=== PATIENT | female | born 1960 | race Caucasian/White ===

== ENCOUNTER → 2018-02-05 | Outpatient (CLI) | payer BC ==
[~2018-02-05] MED LIST: BENICAR HCT 201 EACH PO; CITALOPRAM HBR20 MG PO; CYCLOBENZAPRINE5 MG PO; SYMBICORT 80-10.2 GM INH; estrogen patch TOP
--- NOTE | 2018-02-05 11:06 | Diagnostic Imaging Report ---
PROCEDURE:US RETROPERITONEAL ( KIDNEY ). COMPARISON:None. INDICATIONS:Renal Colic TECHNIQUE: Blevins-scale and color sonographic images of the bilateral kidneys and bladder where obtained in transverse and longitudinal planes. FINDINGS: RIGHT KIDNEY: 10.7 cm in length, cortical thickness 1.9 cm. Cysts: None Solid masses: None Stones: Multiple calculi measuring up to 0.6 cm. Hydronephrosis: None Echogenicity: Normal renal cortical echogenicity. LEFT KIDNEY: 11.7 cm in length, cortical thickness 2.2 cm. Cysts: None Solid masses: None Stones: Multiple calculi measuring up to 1.3 cm. Hydronephrosis: None Echogenicity: Normal renal cortical echogenicity. Bladder: Unremarkable. Right and left ureteral jets are identified. CONCLUSION: Bilateral nonobstructing renal calculi. Dictated by: Zachery Bazan M.D. on 02/05/2018 at 11:11 Electronically approved by: Zachery Bazan M.D. on 02/05/2018 at 11:11
--- NOTE | 2018-02-05 11:45 | Diagnostic Imaging Report ---
PROCEDURE:X-RAY ABDOMEN - KUB COMPARISON:Renal ultrasound same day. INDICATIONS:RENAL COLIC FINDINGS: Multiple calcifications project over the upper poles, interpolar regions, and lower poles of both renal shadows, measuring up to 9 mm on the left and 8 mm on the right. No suspicious calcifications project over the expected ureteral courses. Multiple pelvic phleboliths. Left hemipelvic surgical clips. Right upper quadrant abdominal surgical clips. Bowel gas pattern is nonobstructive. Regional skeletal structures are intact. Mild degenerative disc changes of the lower lumbar spine. CONCLUSION: Multiple bilateral renal calculi as above. Dictated by: Zachery Bazan M.D. on 02/05/2018 at 11:49 Electronically approved by: Zachery Bazan M.D. on 02/05/2018 at 11:49
== END ==
LOC: US 10:13
PROVIDERS: ATTEND Family Medicine
DX: N23 Unspecified renal colic (principal)
CPT/HCPCS: 74018; 76770; 76857

== ENCOUNTER 2018-02-28 10:48 | Emergency (ER) | payer BC ==
[~2018-02-28] VITALS: Ht 160 cm; Wt 106.1 kg
[2018-02-28] MEDS ORDERED: KETOROLAC TROMETHAMINE 60 MG/2 ML VIAL IM ONE (11:15)
--- NOTE | 2018-02-28 12:18 | Diagnostic Imaging Report ---
PROCEDURE:X-RAY RIGHT FOOT, COMPLETE COMPARISON:None. INDICATIONS:RIGHT FOOT PAIN FINDINGS: There is a comminuted fracture at the base of the fifth metatarsal. There is minimal displacement. There is surrounding soft tissue edema. The Lis Franc alignment is maintained. CONCLUSION: Comminuted, minimally displaced fracture at the base of the fifth metatarsal, which may reflect avulsion fracture. Dictated by: ROSA ISELA TOLLIVER M.D. on 02/28/2018 at 12:23 Electronically approved by: ROSA ISELA TOLLIVER M.D. on 02/28/2018 at 12:23
== END 2018-02-28 14:06 | disposition home or self-care (01) ==
LOC: ER 10:48
DX: S92.351A Displaced fracture of fifth metatarsal bone, right foot, initial encounter for closed fracture (principal); X58.XXXA Exposure to other specified factors, initial encounter; Y92.008 Other place in unspecified non-institutional (private) residence as the place of occurrence of the external cause
CPT/HCPCS: 73630; 99284; J1885

== ENCOUNTER → 2020-10-29 | Outpatient (CLI) | payer BC ==
[~2020-10-29] MED LIST changes: +IOPAMIDOL 370 MG/ML 200 ML INFUS..BTL INJ ONE; +SODIUM CHLORIDE 0.9% 50ML 50 ML ONE
[2020-10-29 12:39] LABS: BLOOD UREA NITROGEN 10 mg/dL (7-26); BUN/CREATININE RATIO 13 (6-25); CREATININE, SERUM 0.77 mg/dL (0.57-1.11); EST GLOMERULAR FILTRATION RATE > 60 ML/MIN (60-)
== END ==
LOC: CT 12:01
PROVIDERS: ATTEND Plastic Surgery
DX: R22.9 Localized swelling, mass and lump, unspecified (principal)
CPT/HCPCS: 36415; 73201; 82565; 84520; Q9967

== ENCOUNTER → 2020-11-25 | Day surgery (SDC) | payer BC ==
[2020-11-22 15:30] LABS: BASOPHILS # (AUTO) 0.1 (0.0-0.1); BASOPHILS % 0.7 % (0.0-1.0); EOSINOPHILS # (AUTO) 0.1 (0.0-0.4); EOSINOPHILS % 0.6 % (0.0-6.0); HEMATOCRIT 44.2 % (34.2-44.1); HEMOGLOBIN 14.3 g/dL (12.0-16.0); LYMPHOCYTES # (AUTO) 1.6 (1.0-3.2); LYMPHOCYTES % 15.6 % (18.0-39.1); MEAN CORPUSCULAR HGB CONC 32.4 g/dL (31-35); MEAN CORPUSCULAR VOLUME 92.7 fL (81-99); MONOCYTES # (AUTO) 0.7 (0.2-0.8); MONOCYTES % 6.6 % (4.4-11.3); NEUTROPHILS # (AUTO) 7.7 (2.1-6.9); NEUTROPHILS % 76.1 % (38.7-80.0); PLATELET COUNT 353 x10e3/uL (140-360); RED BLOOD COUNT 4.77 x10e6/uL (3.6-5.1); RED CELL DISTRIBUTION WIDTH 13.1 % (11.7-14.4)
[2020-11-22 15:47] LABS: ANION GAP 16.2 mmol/L (8-16); BLOOD UREA NITROGEN 5 mg/dL (7-26); BUN/CREATININE RATIO 6 (6-25); CALCIUM 10.2 mg/dL (8.4-10.2); CARBON DIOXIDE 25 mmol/L (22-29); CHLORIDE 105 mmol/L (98-107); CREATININE, SERUM 0.83 mg/dL (0.57-1.11); EST GLOMERULAR FILTRATION RATE > 60 ML/MIN (60-); GLUCOSE 141 mg/dL (74-118); POTASSIUM 4.2 mmol/L (3.5-5.1); SODIUM 142 mmol/L (136-145)
[~2020-11-25] MED LIST changes: +BUPIVACAINE HCL 0.5% INJ 30 ML VIAL INJ ONE; +CEFAZOLIN SOD 1 GM/NS 50ML 50 ML IV ONE; +DEXAMETHASONE SOD PHOS INJ 4 MG/ML VIAL ONE; +GABAPENTIN300 MG PO; +HYDROCODON-ACE1 EAC9 PO; -IOPAMIDOL 370 MG/ML 200 ML INFUS..BTL INJ ONE; +KETOROLAC TROMETHAMINE 30 MG/ML VIAL ONE; +LIDOCAINE HCL 2% LOCAL INJ 5 ML SDV VIAL INJ ONE; +MUPIROCIN 2% OINT 22 GM TUBE ONE; +ONDANSETRON HCL INJ 2MG/ML 2ML 2 MG/ML VIAL ONE; +POVIDONE IODINE 0.05% 0.05 % ML PO ONE; +PRO AIR INH; +PROPOFOL IV EMULSION 10 MG/ML 20 ML VIAL ONE; +SEVOFLURANE INHAL SOLN 250 ML PEN BTL ONE; +SODIUM CHLORIDE 0.9% 50ML 0 ML ONE; -SODIUM CHLORIDE 0.9% 50ML 50 ML ONE; +TIZANIDINE HCL4 MG PO; +TYLENOL # 31 EA PO; +ZYRTEC-D TABLE1 EACH PO
[2020-11-25 08:15] VITALS: BP 126/83
== END | disposition home or self-care (01) ==
LOC: OR 05:15
PROVIDERS: ATTEND Plastic Surgery
DX: D17.9 Benign lipomatous neoplasm, unspecified (principal); M54.2 Cervicalgia; J45.909 Unspecified asthma, uncomplicated; I12.9 Hypertensive chronic kidney disease with stage 1 through stage 4 chronic kidney disease, or unspecified chronic kidney disease; N18.9 Chronic kidney disease, unspecified; N20.0 Calculus of kidney; Z88.6 Allergy status to analgesic agent; Z01.810 Encounter for preprocedural cardiovascular examination; Z01.812 Encounter for preprocedural laboratory examination; Z01.818 Encounter for other preprocedural examination; Z20.822 Contact with and (suspected) exposure to COVID-19
CPT/HCPCS: 25073; 36415; 71046; 80048; 85025; 88304; 93005; J0690; J1100; J1885; J2001; J2405; J2704; U0002

== ENCOUNTER → 2020-12-16 | Outpatient (CLI) | payer BC ==
[~2020-12-16] MED LIST changes: -BUPIVACAINE HCL 0.5% INJ 30 ML VIAL INJ ONE; -CEFAZOLIN SOD 1 GM/NS 50ML 50 ML IV ONE; -DEXAMETHASONE SOD PHOS INJ 4 MG/ML VIAL ONE; -KETOROLAC TROMETHAMINE 30 MG/ML VIAL ONE; -LIDOCAINE HCL 2% LOCAL INJ 5 ML SDV VIAL INJ ONE; -MUPIROCIN 2% OINT 22 GM TUBE ONE; -ONDANSETRON HCL INJ 2MG/ML 2ML 2 MG/ML VIAL ONE; -POVIDONE IODINE 0.05% 0.05 % ML PO ONE; -PROPOFOL IV EMULSION 10 MG/ML 20 ML VIAL ONE; -SEVOFLURANE INHAL SOLN 250 ML PEN BTL ONE; -SODIUM CHLORIDE 0.9% 50ML 0 ML ONE
== END ==
LOC: MAMMO 11:51
PROVIDERS: ATTEND Family Medicine
DX: R59.0 Localized enlarged lymph nodes (principal); L98.9 Disorder of the skin and subcutaneous tissue, unspecified
CPT/HCPCS: 77066

== ENCOUNTER → 2020-12-21 | Outpatient (CLI) | payer BC ==
[~2020-12-21] MED LIST changes: +IOPAMIDOL 370 MG/ML 200 ML INFUS..BTL INJ ONE; +SODIUM CHLORIDE 0.9% 50ML 50 ML ONE
[2020-12-21 12:26] LABS: BLOOD UREA NITROGEN 6 mg/dL (7-26); BUN/CREATININE RATIO 8 (6-25); CREATININE, SERUM 0.79 mg/dL (0.57-1.11); EST GLOMERULAR FILTRATION RATE > 60 ML/MIN (60-)
== END ==
LOC: CT 11:47
PROVIDERS: ATTEND Family Medicine
DX: R59.0 Localized enlarged lymph nodes (principal); J98.11 Atelectasis
CPT/HCPCS: 36415; 70491; 71260; 82565; 84520; Q9967

== ENCOUNTER 2020-12-26 13:00 | Emergency (ER) | payer BC ==
[~2020-12-26] VITALS: Ht 160 cm; Wt 97.5 kg
[~2020-12-26 13:00] MED LIST changes: -IOPAMIDOL 370 MG/ML 200 ML INFUS..BTL INJ ONE; -SODIUM CHLORIDE 0.9% 50ML 50 ML ONE
[2020-12-26] MEDS ORDERED: HYDROCODONE/APAP 5MG-325MG TAB PO ONE (15:45)
[2020-12-26] MEDS ORDERED: HYDROCODONE/APAP 5MG-325MG TAB ONE (16:00)
[2020-12-26] MEDS ORDERED: TYLENOL # 31 EA PO (16:35)
[2020-12-26] MEDS ORDERED: CEPHALEXIN500 MG PO (16:35)
[2020-12-26] MEDS ORDERED: BACTRIM DS TAB1 EACH PO (16:35)
== END 2020-12-26 16:44 | disposition home or self-care (01) ==
LOC: FSED 13:05
DX: M25.561 Pain in right knee (principal); L08.9 Local infection of the skin and subcutaneous tissue, unspecified; I10 Essential (primary) hypertension; F41.9 Anxiety disorder, unspecified; Z87.442 Personal history of urinary calculi
CPT/HCPCS: 93971; 99283

== ENCOUNTER 2020-12-31 11:54 | Inpatient (IN) | payer BC ==
[~2020-12-31] VITALS: Ht 165.1 cm; Wt 97.5 kg
[~2020-12-31 11:54] MED LIST changes: +BACTRIM DS TAB1 EACH PO; +CEPHALEXIN500 MG PO
[2020-12-31 12:52] VITALS: BP 143/71
[2020-12-31 13:00] VITALS: BP 143/71
[2020-12-31] MEDS ORDERED: ACETAMINOPHEN 325 MG TAB PO PRN (13:45)
[2020-12-31] MEDS ORDERED: BUDESONIDE/FORMOTEROL FUMARATE 80/4.5MCG 6.9 GM INH AEROSOL IH PRN (14:30)
[2020-12-31] MEDS ORDERED: CEFEPIME 1 GM in SODIUM CHLORIDE 0.9% 50ML 50 ML IV SCH (15:00)
[2020-12-31 15:24] LABS: BASOPHILS # (AUTO) 0.1 (0.0-0.1); BASOPHILS % 0.9 % (0.0-1.0); EOSINOPHILS # (AUTO) 0.2 (0.0-0.4); EOSINOPHILS % 1.6 % (0.0-6.0); HEMATOCRIT 41.4 % (34.2-44.1); HEMOGLOBIN 13.2 g/dL (12.0-16.0); LYMPHOCYTES # (AUTO) 2.2 (1.0-3.2); LYMPHOCYTES % 22.9 % (18.0-39.1); MEAN CORPUSCULAR HEMOGLOBIN 29.3 pg (28-32); MEAN CORPUSCULAR HGB CONC 31.9 g/dL (31-35); MONOCYTES # (AUTO) 0.5 (0.2-0.8); MONOCYTES % 5.7 % (4.4-11.3); NEUTROPHILS # (AUTO) 6.5 (2.1-6.9); NEUTROPHILS % 68.4 % (38.7-80.0); PLATELET COUNT 335 x10e3/uL (140-360); RED CELL DISTRIBUTION WIDTH 13.3 % (11.7-14.4)
[2020-12-31 15:44] LABS: ALANINE AMINOTRANSFERASE 13 IU/L (0-55); ALBUMIN 3.5 g/dL (3.5-5.0); ALBUMIN/GLOBULIN RATIO 1.5 (0.8-2.0); ALKALINE PHOSPHATASE 63 IU/L (40-150); ANION GAP 16.5 mmol/L (8-16); BLOOD UREA NITROGEN 8 mg/dL (7-26); BUN/CREATININE RATIO 10 (6-25); CALCIUM 8.8 mg/dL (8.4-10.2); CARBON DIOXIDE 22 mmol/L (22-29); CHLORIDE 106 mmol/L (98-107); CREATININE, SERUM 0.83 mg/dL (0.57-1.11); EST GLOMERULAR FILTRATION RATE > 60 ML/MIN (60-); GLUCOSE 181 mg/dL (74-118); POTASSIUM 3.5 mmol/L (3.5-5.1); SODIUM 141 mmol/L (136-145)
[2020-12-31] MEDS ORDERED: CEFEPIME HCL 1 GM VIAL IV SCH (16:00)
[2020-12-31 16:14] VITALS: BP 119/68
[2020-12-31] MEDS: MORPHINE SULFATE INJ 4 MG/ML INJ 1ML IV PRN ×2 (16:14→22:30)
[2020-12-31] MEDS: GABAPENTIN 300 MG CAP PO SCH (16:14)
[2020-12-31] MEDS: HYDROCODONE/APAP 10MG-325MG TAB PO PRN (18:30)
[2020-12-31 20:02] VITALS: BP 135/71
[2020-12-31] MEDS ORDERED: SODIUM CHLORIDE 0.9% 50ML 50 ML ONE ×2 (21:42→22:05)
[2020-12-31] MEDS: DEXTROSE 5%/0.9% SOD CHL 1,000 ML IV SCH (22:02)
[2020-12-31] MEDS: CEFEPIME 1 GM in SODIUM CHLORIDE 0.9% 50ML 50 ML IV SCH (22:03)
[2020-12-31] MEDS ORDERED: IOPAMIDOL 370 MG/ML 200 ML INFUS..BTL INJ ONE (22:05)
[2020-12-31] MEDS: VANCOMYCIN 1GM/NS 250 ML 250 ML IV SCH (23:02)
[2021-01-01] VITALS (9 sets, daily range): BP systolic 120–147; BP diastolic 66–80
[2021-01-01] MEDS: DEXTROSE 5%/0.9% SOD CHL 1,000 ML IV SCH ×2 (03:05→16:48)
[2021-01-01] MEDS: MORPHINE SULFATE INJ 4 MG/ML INJ 1ML IV PRN ×3 (05:29→22:28)
[2021-01-01] MEDS: HYDROCHLOROTHIAZIDE 25 MG TAB PO SCH (08:33)
[2021-01-01] MEDS: OLMESARTAN 20 MG TAB PO SCH (08:33)
[2021-01-01] MEDS: CEFEPIME 1 GM in SODIUM CHLORIDE 0.9% 50ML 50 ML IV SCH ×2 (08:33→20:12)
[2021-01-01] MEDS: CITALOPRAM HYDROBROMIDE 20 MG TAB PO SCH (08:33)
[2021-01-01] MEDS: GABAPENTIN 300 MG CAP PO SCH ×2 (08:33→17:00)
[2021-01-01] MEDS: HYDROCODONE/APAP 10MG-325MG TAB PO PRN ×2 (08:40→20:18)
[2021-01-01] MEDS ORDERED: HYDROCHLOROTHIAZIDE PO SCH (09:00)
[2021-01-01] MEDS ORDERED: [UNRECOGNIZED DRUG - OTHER] PO SCH (09:00)
[2021-01-01] MEDS ORDERED: OLMESARTAN PO SCH (09:00)
[2021-01-01] MEDS: VANCOMYCIN 1GM/NS 250 ML 250 ML IV SCH ×2 (10:01→20:56)
[2021-01-01] MEDS ORDERED: FLUCONAZOLE 100 MG TAB PO ONE (13:30)
[2021-01-01] MEDS: ENOXAPARIN SOD INJ 40 MG/0.4 ML SYR SC SCH (17:00)
[2021-01-01] MEDS: ONDANSETRON HCL INJ 2MG/ML 2ML 2 MG/ML VIAL IV PRN (22:17)
[2021-01-02] VITALS (8 sets, daily range): BP systolic 132–147; BP diastolic 68–78
[2021-01-02] MEDS: DEXTROSE 5%/0.9% SOD CHL 1,000 ML IV SCH ×2 (06:13→20:17)
[2021-01-02] MEDS: CITALOPRAM HYDROBROMIDE 20 MG TAB PO SCH (08:47)
[2021-01-02] MEDS: HYDROCHLOROTHIAZIDE 25 MG TAB PO SCH (08:47)
[2021-01-02] MEDS: VANCOMYCIN 1GM/NS 250 ML 250 ML IV SCH ×2 (08:49→21:12)
[2021-01-02] MEDS: OLMESARTAN 20 MG TAB PO SCH (08:49)
[2021-01-02] MEDS: GABAPENTIN 300 MG CAP PO SCH ×2 (08:49→17:00)
[2021-01-02] MEDS: CEFEPIME 1 GM in SODIUM CHLORIDE 0.9% 50ML 50 ML IV SCH ×2 (08:49→20:11)
[2021-01-02 08:59] LABS: ANION GAP 14.2 mmol/L (8-16); BLOOD UREA NITROGEN 6 mg/dL (7-26); BUN/CREATININE RATIO 8 (6-25); CALCIUM 8.7 mg/dL (8.4-10.2); CARBON DIOXIDE 22 mmol/L (22-29); CHLORIDE 110 mmol/L (98-107); CREATININE, SERUM 0.72 mg/dL (0.57-1.11); EST GLOMERULAR FILTRATION RATE > 60 ML/MIN (60-); GLUCOSE 160 mg/dL (74-118); POTASSIUM 4.2 mmol/L (3.5-5.1); SODIUM 142 mmol/L (136-145)
[2021-01-02] MEDS: MORPHINE SULFATE INJ 4 MG/ML INJ 1ML IV PRN ×2 (10:06→21:26)
[2021-01-02] MEDS: ONDANSETRON HCL INJ 2MG/ML 2ML 2 MG/ML VIAL IV PRN ×2 (10:06→21:26)
[2021-01-02] MEDS: HYDROCODONE/APAP 10MG-325MG TAB PO PRN (15:37)
[2021-01-02] MEDS: ENOXAPARIN SOD INJ 40 MG/0.4 ML SYR SC SCH (17:00)
[2021-01-03 01:47] VITALS: BP 152/77
[2021-01-03] MEDS: HYDROCODONE/APAP 10MG-325MG TAB PO PRN ×2 (05:03→09:38)
[2021-01-03 05:45] VITALS: BP 159/92
[2021-01-03 06:28] LABS: BASOPHILS # (AUTO) 0.1 (0.0-0.1); BASOPHILS % 0.8 % (0.0-1.0); EOSINOPHILS # (AUTO) 0.2 (0.0-0.4); EOSINOPHILS % 3.5 % (0.0-6.0); HEMATOCRIT 35.6 % (34.2-44.1); HEMOGLOBIN 11.3 g/dL (12.0-16.0); LYMPHOCYTES # (AUTO) 1.8 (1.0-3.2); LYMPHOCYTES % 27.4 % (18.0-39.1); MEAN CORPUSCULAR HEMOGLOBIN 30.3 pg (28-32); MEAN CORPUSCULAR HGB CONC 31.7 g/dL (31-35); MEAN CORPUSCULAR VOLUME 95.4 fL (81-99); MONOCYTES # (AUTO) 0.4 (0.2-0.8); MONOCYTES % 6.8 % (4.4-11.3); PLATELET COUNT 274 x10e3/uL (140-360); RED BLOOD COUNT 3.73 x10e6/uL (3.6-5.1); RED CELL DISTRIBUTION WIDTH 13.5 % (11.7-14.4)
[2021-01-03 06:55] LABS: ALANINE AMINOTRANSFERASE 10 IU/L (0-55); ALBUMIN 2.9 g/dL (3.5-5.0); ALBUMIN/GLOBULIN RATIO 1.2 (0.8-2.0); ALKALINE PHOSPHATASE 68 IU/L (40-150); ANION GAP 12.8 mmol/L (8-16); BLOOD UREA NITROGEN 7 mg/dL (7-26); BUN/CREATININE RATIO 10 (6-25); CALCIUM 8.9 mg/dL (8.4-10.2); CARBON DIOXIDE 26 mmol/L (22-29); CHLORIDE 107 mmol/L (98-107); EST GLOMERULAR FILTRATION RATE > 60 ML/MIN (60-); GLUCOSE 166 mg/dL (74-118); POTASSIUM 3.8 mmol/L (3.5-5.1); SODIUM 142 mmol/L (136-145)
[2021-01-03] MEDS: CEFEPIME 1 GM in SODIUM CHLORIDE 0.9% 50ML 50 ML IV SCH (08:00)
[2021-01-03] MEDS ORDERED: CEPHALEXIN500 MG PO (08:02)
[2021-01-03 08:13] VITALS: BP 145/3
[2021-01-03 08:28] VITALS: BP 145/73
[2021-01-03] MEDS: OLMESARTAN 20 MG TAB PO SCH (09:37)
[2021-01-03] MEDS: HYDROCHLOROTHIAZIDE 25 MG TAB PO SCH (09:37)
[2021-01-03] MEDS: CITALOPRAM HYDROBROMIDE 20 MG TAB PO SCH (09:37)
[2021-01-03] MEDS: GABAPENTIN 300 MG CAP PO SCH (09:38)
[2021-01-03] MEDS: VANCOMYCIN 1GM/NS 250 ML 250 ML IV SCH (10:00)
[2021-01-03 11:38] VITALS: BP 135/88
== END 2021-01-03 12:18 | disposition home or self-care (01) | DRG 603 ==
LOC: MED/SURG 11:58 → MED/SURG3 12:47
PROVIDERS: ADMIT Family Medicine; ATTEND Family Medicine
PROC: 02HV33Z Insertion of Infusion Device into Superior Vena Cava, Percutaneous Approach (ICD-10-PCS; principal; 2020-12-31)
DX: L03.115 Cellulitis of right lower limb (principal); I10 Essential (primary) hypertension; G89.29 Other chronic pain; G62.9 Polyneuropathy, unspecified; J45.909 Unspecified asthma, uncomplicated; E78.5 Hyperlipidemia, unspecified; Z20.822 Contact with and (suspected) exposure to COVID-19
CPT/HCPCS: 36415; 36569; 71045; 71260; 80048; 80053; 80202; 84550; 85025; 85379; 87040; 93971; J0692; J1650; J2270; J2405; J3370; J7042; Q9967; U0002

== ENCOUNTER → 2021-02-03 | Outpatient (CLI) | payer BC | LOC: MRI 12:42 | PROVIDERS: ATTEND Family Medicine | DX: M25.561 Pain in right knee (principal); L03.115 Cellulitis of right lower limb ==

== ENCOUNTER 2021-08-07 09:37 | Inpatient (IN) | payer BC ==
[~2021-08-07] VITALS: Ht 160 cm; Wt 92.6 kg
[2021-08-07] MEDS ORDERED: METFORMIN HCL500 MG PO (10:02)
[2021-08-07] MEDS ORDERED: TIZANIDINE HCL4 M1 PO (10:02)
[2021-08-07] MEDS ORDERED: BUSPIRONE HCL5 MG PO (10:02)
[2021-08-07] MEDS ORDERED: SODIUM CHLORIDE 0.9% 1000ML 1,000 ML IV SCH ×2 (10:30→13:00)
[2021-08-07] MEDS ORDERED: KETOROLAC TROMETHAMINE 30 MG/ML VIAL IV STA (10:33)
[2021-08-07] MEDS ORDERED: ONDANSETRON HCL INJ 2MG/ML 2ML 2 MG/ML VIAL IV STA (10:33)
[2021-08-07] MEDS ORDERED: KETOROLAC TROMETHAMINE 30 MG/ML VIAL ONE (10:42)
[2021-08-07] MEDS ORDERED: ONDANSETRON HCL INJ 2MG/ML 2ML 2 MG/ML VIAL ONE (10:42)
[2021-08-07] MEDS ORDERED: SODIUM CHLORIDE 0.9% 50ML 50 ML ONE (10:44)
[2021-08-07] MEDS ORDERED: CEFTRIAXONE 1 GM VIAL ONE (10:44)
[2021-08-07] MEDS ORDERED: CEFTRIAXONE 1 GM in SODIUM CHLORIDE 0.9% 50ML 50 ML IV ONE (10:45)
[2021-08-07] MEDS: SODIUM CHLORIDE 0.9% 1000ML 1,000 ML IV SCH ×2 (12:15→17:49)
[2021-08-07] MEDS ORDERED: SODIUM CHLORIDE 0.9% 1000ML 1,000 ML ONE (12:23)
[2021-08-07] MEDS ORDERED: Morphine 4mg Syringe 4 MG/ML INJ IV PRN (13:00)
[2021-08-07] MEDS ORDERED: ONDANSETRON HCL INJ 2MG/ML 2ML 2 MG/ML VIAL IV PRN (13:00)
[2021-08-07] MEDS ORDERED: DEXTROSE 50% SYRINGE 50 ML IV PRN (13:15)
[2021-08-07 15:30] VITALS: BP 111/59
[2021-08-07] MEDS: INSULIN LISPRO 100 UNIT/1 ML 3ML VIAL SQ SCH ×2 (16:30→21:00)
[2021-08-07 16:54] VITALS: BP 111/59
[2021-08-07] MEDS: Morphine 2mg Syringe 2 MG/ML SYR IV PRN (17:50)
[2021-08-07] MEDS ORDERED: KETOROLAC TROMETHAMINE 30 MG/ML VIAL IV PRN (19:30)
[2021-08-07] MEDS ORDERED: BUDESONIDE/FORMOTEROL FUMARATE 80/4.5MCG 6.9 GM INH AEROSOL IH PRN (19:30)
[2021-08-07] MEDS ORDERED: HYDROCODONE/APAP 10MG-325MG TAB PO PRN (19:30)
[2021-08-07 20:31] VITALS: BP 99/63
[2021-08-07] MEDS: TIZANIDINE HCL 4 MG TAB PO SCH (21:09)
[2021-08-07] MEDS: TAMSULOSIN HCL 0.4 MG CAP PO SCH (21:09)
[2021-08-07] MEDS: GABAPENTIN 300 MG CAP PO SCH (21:09)
[2021-08-07] MEDS: SENNA-S TABLET PO SCH (21:09)
[2021-08-08] VITALS (10 sets, daily range): BP systolic 84–125; BP diastolic 55–72
[2021-08-08] MEDS ORDERED: ACETAMINOPHEN 325 MG TAB PO PRN (00:15)
[2021-08-08 07:22] LABS: BASOPHILS % 0.6 % (0.0-1.0); EOSINOPHILS % 0.2 % (0.0-6.0); HEMATOCRIT 34.6 % (34.2-44.1); HEMOGLOBIN 10.4 g/dL (12.0-16.0); LYMPHOCYTES # (AUTO) 0.3 (1.0-3.2); LYMPHOCYTES % 6.9 % (18.0-39.1); MEAN CORPUSCULAR HEMOGLOBIN 29.2 pg (28-32); MEAN CORPUSCULAR HGB CONC 30.1 g/dL (31-35); MEAN CORPUSCULAR VOLUME 97.2 fL (81-99); MONOCYTES # (AUTO) 0.3 (0.2-0.8); MONOCYTES % 5.4 % (4.4-11.3); NEUTROPHILS % 85.2 % (38.7-80.0); PLATELET COUNT 149 x10e3/uL (140-360); RED BLOOD COUNT 3.56 x10e6/uL (3.6-5.1); RED CELL DISTRIBUTION WIDTH 13.9 % (11.7-14.4)
[2021-08-08] MEDS: INSULIN LISPRO 100 UNIT/1 ML 3ML VIAL SQ SCH ×4 (07:30→20:45)
[2021-08-08 07:41] LABS: ANION GAP 12.9 mmol/L (8-16); CREATININE, SERUM 1.32 mg/dL (0.57-1.11); POTASSIUM 4.9 mmol/L (3.5-5.1)
[2021-08-08 07:50] LABS: CALCIUM 9.3 mg/dL (8.4-10.2)
[2021-08-08] MEDS ORDERED: OLMESARTAN 20 MG TAB PO SCH (09:00)
[2021-08-08] MEDS: CEFTRIAXONE 1 GM in SODIUM CHLORIDE 0.9% 50ML 50 ML IV SCH (09:00)
[2021-08-08] MEDS ORDERED: HYDROCHLOROTHIAZIDE 25 MG TAB PO SCH (09:00)
[2021-08-08] MEDS: Morphine 2mg Syringe 2 MG/ML SYR IV PRN ×2 (09:00→13:47)
[2021-08-08] MEDS ORDERED: IOPAMIDOL 300MG/ML 50ML INFUS..BTL IV ONE (11:05)
[2021-08-08] MEDS: SODIUM CHLORIDE 0.9% 1000ML 1,000 ML IV SCH ×2 (12:01→20:01)
[2021-08-08] MEDS ORDERED: ROCURONIUM BROMIDE 10 MG/ML 5ML VIAL IV ONE (12:30)
[2021-08-08] MEDS ORDERED: DEXAMETHASONE SOD PHOS INJ 4 MG/ML SDV ONE (12:30)
[2021-08-08] MEDS ORDERED: POVIDONE IODINE 0.05% 0.05 % ML PO ONE (12:30)
[2021-08-08] MEDS ORDERED: PROPOFOL IV EMULSION 10 MG/ML 20 ML VIAL ONE (12:30)
[2021-08-08] MEDS ORDERED: LIDOCAINE HCL 2% LOCAL INJ 5 ML SDV VIAL INJ ONE (12:30)
[2021-08-08] MEDS ORDERED: SEVOFLURANE INHAL SOLN 250 ML PEN BTL ONE (12:30)
[2021-08-08] MEDS ORDERED: KETOROLAC TROMETHAMINE 30 MG/ML VIAL ONE (12:30)
[2021-08-08] MEDS ORDERED: ONDANSETRON HCL INJ 2MG/ML 2ML 2 MG/ML VIAL ONE (12:30)
[2021-08-08] MEDS ORDERED: MIDAZOLAM HCL 2 MG/2 ML VIAL ONE (12:49)
[2021-08-08] MEDS ORDERED: FENTANYL CITRATE/PF 100MCG/2 ML INJ ONE (12:49)
[2021-08-08] MEDS: GABAPENTIN 300 MG CAP PO SCH ×2 (16:00→16:18)
[2021-08-08] MEDS: TIZANIDINE HCL 4 MG TAB PO SCH ×2 (16:00→16:18)
[2021-08-08] MEDS: SENNA-S TABLET PO SCH ×2 (16:00→16:18)
[2021-08-08] MEDS: BUSPIRONE HCL 5 MG TAB PO SCH (16:00)
[2021-08-08] MEDS: CITALOPRAM HYDROBROMIDE 20 MG TAB PO SCH (16:00)
[2021-08-08] MEDS: TAMSULOSIN HCL 0.4 MG CAP PO SCH (20:45)
[2021-08-09] VITALS: BP 87/57
[2021-08-09] MEDS: Morphine 2mg Syringe 2 MG/ML SYR IV PRN ×2 (00:50→05:50)
[2021-08-09 04:00] VITALS: BP 112/77
[2021-08-09] MEDS: SODIUM CHLORIDE 0.9% 1000ML 1,000 ML IV SCH (05:37)
[2021-08-09 06:05] LABS: BASOPHILS % 0.2 % (0.0-1.0); HEMATOCRIT 33.5 % (34.2-44.1); HEMOGLOBIN 10.3 g/dL (12.0-16.0); LYMPHOCYTES # (AUTO) 0.4 (1.0-3.2); LYMPHOCYTES % 7.3 % (18.0-39.1); MEAN CORPUSCULAR HEMOGLOBIN 29.1 pg (28-32); MEAN CORPUSCULAR HGB CONC 30.7 g/dL (31-35); MEAN CORPUSCULAR VOLUME 94.6 fL (81-99); MONOCYTES # (AUTO) 0.3 (0.2-0.8); MONOCYTES % 5.9 % (4.4-11.3); NEUTROPHILS # (AUTO) 4.3 (2.1-6.9); NEUTROPHILS % 85.8 % (38.7-80.0); PLATELET COUNT 168 x10e3/uL (140-360); RED BLOOD COUNT 3.54 x10e6/uL (3.6-5.1); RED CELL DISTRIBUTION WIDTH 14.2 % (11.7-14.4)
[2021-08-09 06:42] LABS: ANION GAP 9.3 mmol/L (8-16); CALCIUM 9.6 mg/dL (8.4-10.2); CREATININE, SERUM 1.22 mg/dL (0.57-1.11); POTASSIUM 5.3 mmol/L (3.5-5.1)
[2021-08-09] MEDS: INSULIN LISPRO 100 UNIT/1 ML 3ML VIAL SQ SCH ×2 (07:30→11:30)
[2021-08-09] MEDS: BUSPIRONE HCL 5 MG TAB PO SCH (08:35)
[2021-08-09] MEDS: CEFTRIAXONE 1 GM in SODIUM CHLORIDE 0.9% 50ML 50 ML IV SCH (08:35)
[2021-08-09] MEDS: SENNA-S TABLET PO SCH (08:35)
[2021-08-09] MEDS: CITALOPRAM HYDROBROMIDE 20 MG TAB PO SCH (08:35)
[2021-08-09] MEDS: GABAPENTIN 300 MG CAP PO SCH (08:35)
[2021-08-09] MEDS: TIZANIDINE HCL 4 MG TAB PO SCH (08:35)
[2021-08-09 08:46] VITALS: BP 155/76
[2021-08-09 08:50] VITALS: BP 155/76
== END 2021-08-09 12:39 | disposition home or self-care (01) | DRG 660 ==
LOC: FSED 10:22 → ERHOLD 12:59 → MED/SURG2 15:10
PROVIDERS: ADMIT Internal Medicine; ATTEND Internal Medicine
PROC: 0TC08ZZ Extirpation of Matter from Right Kidney, Via Natural or Artificial Opening Endoscopic (ICD-10-PCS; 2021-08-08)
PROC: BT141ZZ Fluoroscopy of Kidneys, Ureters and Bladder using Low Osmolar Contrast (ICD-10-PCS; 2021-08-08)
PROC: 0TC78ZZ Extirpation of Matter from Left Ureter, Via Natural or Artificial Opening Endoscopic (ICD-10-PCS; 2021-08-08)
PROC: 0TC18ZZ Extirpation of Matter from Left Kidney, Via Natural or Artificial Opening Endoscopic (ICD-10-PCS; principal; 2021-08-08 12:30)
PROC: 0T788DZ Dilation of Bilateral Ureters with Intraluminal Device, Via Natural or Artificial Opening Endoscopic (ICD-10-PCS; 2021-08-08 12:30)
DX: N20.2 Calculus of kidney with calculus of ureter (principal); E87.1 Hypo-osmolality and hyponatremia; N13.4 Hydroureter; E11.22 Type 2 diabetes mellitus with diabetic chronic kidney disease; I12.9 Hypertensive chronic kidney disease with stage 1 through stage 4 chronic kidney disease, or unspecified chronic kidney disease; N18.30 Chronic kidney disease, stage 3 unspecified; Z79.899 Other long term (current) drug therapy; J45.909 Unspecified asthma, uncomplicated; E66.9 Obesity, unspecified; Z68.36 Body mass index [BMI] 36.0-36.9, adult; G89.29 Other chronic pain; F32.A Depression, unspecified; F41.9 Anxiety disorder, unspecified; Z20.822 Contact with and (suspected) exposure to COVID-19
CPT/HCPCS: 36415; 74176; 74420; 80048; 81003; 82948; 85025; 87086; 87186; 88300; 94799; 96374; 96375; 99284; C1758; C1766; C2625; J0696; J1100; J1885; J2001; J2250; J2270; J2405; J3010; J7030; U0002

== ENCOUNTER 2024-10-04 19:09 | Inpatient (IN) | payer OTHER ==
[~2024-10-04] VITALS: Ht 160 cm; Wt 69.9 kg
[~2024-10-04 19:09] MED LIST changes: +BUSPIRONE HCL5 MG PO; +METFORMIN HCL500 MG PO; +TIZANIDINE HCL4 M1 PO
[2024-10-04 19:20] VITALS: TEMP 99.7
[2024-10-04] MEDS ORDERED: CEFTRIAXONE 1 GM VIAL ONE (20:16)
[2024-10-04] MEDS ORDERED: SODIUM CHLORIDE 0.9% 100 ML ONE (20:17)
[2024-10-04] MEDS ORDERED: SODIUM CHLORIDE 0.9% 1000ML 1,000 ML ONE (20:29)
[2024-10-04] MEDS: ACETAMINOPHEN 325 MG TAB PO ONE (20:35)
[2024-10-04] MEDS: SODIUM CHLORIDE 0.9% 1000ML 2,100 ML IV ONE (20:48)
[2024-10-04] MEDS: CEFTRIAXONE 2 GM in SODIUM CHLORIDE 0.9% 100 ML IV ONE (20:48)
[2024-10-04 21:05] VITALS: PULSE 104; RESP 18
[2024-10-04] MEDS: ONDANSETRON HCL INJ 2MG/ML 2ML 2 MG/ML VIAL IV STA (22:44)
[2024-10-04] MEDS: Morphine 2mg Syringe 2 MG/ML SYR IV ONE (22:44)
[2024-10-04 23:00] VITALS: BP 145/75; PULSE 117; RESP 20; TEMP 98.6; O2SAT 97
[2024-10-05 00:34] VITALS: BP 151/72; PULSE 115; RESP 18; TEMP 98.6; O2SAT 100
[2024-10-05] MEDS ORDERED: TRELEGY ELLIPT1 EACH (00:47)
[2024-10-05] MEDS: SODIUM CHLORIDE 0.9% 1000ML 1,000 ML IV SCH (01:42)
[2024-10-05 04:00] VITALS: BP 148/77; PULSE 136; RESP 18; TEMP 101.7; O2SAT 97
[2024-10-05] MEDS: ONDANSETRON HCL INJ 2MG/ML 2ML 2 MG/ML VIAL IV PRN (04:19)
[2024-10-05] MEDS: Morphine 4mg INJECTION 4 MG/ML INJ IV PRN (04:19)
[2024-10-05 09:13] VITALS: BP 146/89; PULSE 133; RESP 20; TEMP 100.9; O2SAT 98
[2024-10-05 09:15] LABS: BASOPHILS # (AUTO) 0.1 (0.0-0.1); BASOPHILS % 0.3 % (0.0-1.0); HEMATOCRIT 38.9 % (34.2-44.1); HEMOGLOBIN 12.4 g/dL (12.0-16.0); LYMPHOCYTES # (AUTO) 0.9 (1.0-3.2); LYMPHOCYTES % 4.5 % (18.0-39.1); MEAN CORPUSCULAR HGB CONC 31.9 g/dL (31-35); MEAN CORPUSCULAR VOLUME 90.9 fL (81-99); MONOCYTES # (AUTO) 1.3 (0.2-0.8); MONOCYTES % 6.7 % (4.4-11.3); NEUTROPHILS # (AUTO) 17.3 (2.1-6.9); PLATELET COUNT 298 x10e3/uL (140-360); RED BLOOD COUNT 4.28 x10e6/uL (3.6-5.1); RED CELL DISTRIBUTION WIDTH 14.6 % (11.7-14.4); WHITE BLOOD COUNT 19.93 x10e3/uL (4.8-10.8)
[2024-10-05 09:33] VITALS: BP 146/89; PULSE 133; RESP 20; TEMP 100.9; O2SAT 98
[2024-10-05 09:35] LABS: ANION GAP 11.8 mmol/L (8-16); CALCIUM 8.9 mg/dL (8.4-10.2); CREATININE, SERUM 0.73 mg/dL (0.57-1.11); POTASSIUM 3.8 mmol/L (3.5-5.1)
[2024-10-05] MEDS ORDERED: DOCUSATE SODIUM 100 MG CAP PO PRN (11:45)
[2024-10-05] MEDS ORDERED: ALBUTEROL/IPRATROPIUM 3 ML NEB NEB PRN (11:45)
[2024-10-05] MEDS ORDERED: MELATONIN 3 MG TAB PO PRN (11:45)
[2024-10-05] MEDS ORDERED: METOPROLOL TARTRATE INJ 1 MG/ML VIAL IV PRN (11:45)
[2024-10-05] MEDS: ACETAMINOPHEN 325 MG TAB PO PRN (12:38)
[2024-10-05 13:34] LABS: BILIRUBIN,URINE NEGATIVE (NEGATIVE); CLARITY,URINE HAZY (CLEAR); COLOR,URINE YELLOW (YELLOW); GLUCOSE, URINE 500 (NEGATIVE); KETONES,URINE 1+ (NEGATIVE); LEUKOCYTE ESTERASE ,URINE NEGATIVE (NEGATIVE); NITRITE,URINE NEGATIVE (NEGATIVE); PH,URINE 5.5 (5 - 7); PROTEIN,URINE DIPSTICK TRACE (NEGATIVE); URINE UROBILINOGEN 0.2 mg/dL (0.2 - 1)
[2024-10-05 13:35] LABS: BACTERIA,URINE FEW /HPF; EPITHELIAL CELLS,URINE MODERATE /LPF; MUCUS,URINE FEW
[2024-10-05] MEDS: ENOXAPARIN SOD INJ 40 MG/0.4 ML SYR SC SCH (17:08)
[2024-10-05 19:06] VITALS: PULSE 122; RESP 18; O2SAT 97
[2024-10-05 20:00] VITALS: BP 171/88; PULSE 122; RESP 20; TEMP 102.4; O2SAT 96
[2024-10-05] MEDS ORDERED: METOPROLOL TARTRATE 25 MG TAB PO SCH (22:00)
[2024-10-06] VITALS (9 sets, daily range): BP systolic 128–166; BP diastolic 70–95; PULSE 106–118; RESP 18–20; TEMP 98.9–99.7; O2SAT 96–100
[2024-10-06 11:58] LABS: BASOPHILS % 0.3 % (0.0-1.0); EOSINOPHILS % 0.1 % (0.0-6.0); HEMATOCRIT 33.8 % (34.2-44.1); HEMOGLOBIN 10.9 g/dL (12.0-16.0); LYMPHOCYTES # (AUTO) 1.1 (1.0-3.2); LYMPHOCYTES % 9.4 % (18.0-39.1); MEAN CORPUSCULAR HGB CONC 32.2 g/dL (31-35); MEAN CORPUSCULAR VOLUME 89.9 fL (81-99); MONOCYTES # (AUTO) 0.9 (0.2-0.8); MONOCYTES % 7.6 % (4.4-11.3); NEUTROPHILS # (AUTO) 9.2 (2.1-6.9); NEUTROPHILS % 82.2 % (38.7-80.0); PLATELET COUNT 212 x10e3/uL (140-360); RED BLOOD COUNT 3.76 x10e6/uL (3.6-5.1); RED CELL DISTRIBUTION WIDTH 14.7 % (11.7-14.4); WHITE BLOOD COUNT 11.22 x10e3/uL (4.8-10.8)
[2024-10-06 13:49] LABS: ANION GAP 8.9 mmol/L (8-16); CALCIUM 8.8 mg/dL (8.4-10.2); CREATININE, SERUM 0.7 mg/dL (0.57-1.11)
[2024-10-06 13:51] LABS: POTASSIUM 2.9 mmol/L (3.5-5.1)
[2024-10-06] MEDS: POTASSIUM CHLORIDE 10MEQ EA PO ONE (15:13)
[2024-10-07] VITALS (10 sets, daily range): BP systolic 118–153; BP diastolic 76–90; PULSE 90–109; RESP 17–20; TEMP 98–98.8; O2SAT 97–100
[2024-10-07 06:39] LABS: BASOPHILS # (AUTO) 0.1 (0.0-0.1); BASOPHILS % 0.8 % (0.0-1.0); EOSINOPHILS # (AUTO) 0.1 (0.0-0.4); EOSINOPHILS % 1.4 % (0.0-6.0); HEMATOCRIT 38.4 % (34.2-44.1); HEMOGLOBIN 11.9 g/dL (12.0-16.0); LYMPHOCYTES # (AUTO) 1.2 (1.0-3.2); LYMPHOCYTES % 15.9 % (18.0-39.1); MEAN CORPUSCULAR HEMOGLOBIN 28.7 pg (28-32); MEAN CORPUSCULAR VOLUME 92.8 fL (81-99); MONOCYTES # (AUTO) 0.6 (0.2-0.8); MONOCYTES % 8.4 % (4.4-11.3); NEUTROPHILS # (AUTO) 5.4 (2.1-6.9); PLATELET COUNT 229 x10e3/uL (140-360); RED BLOOD COUNT 4.14 x10e6/uL (3.6-5.1); RED CELL DISTRIBUTION WIDTH 14.5 % (11.7-14.4); WHITE BLOOD COUNT 7.38 x10e3/uL (4.8-10.8)
[2024-10-07 07:10] LABS: ANION GAP 10.5 mmol/L (8-16); CALCIUM 8.8 mg/dL (8.4-10.2); CREATININE, SERUM 0.69 mg/dL (0.57-1.11); POTASSIUM 3.5 mmol/L (3.5-5.1)
[2024-10-08] VITALS: BP 149/91; PULSE 88; RESP 17; TEMP 97.8; O2SAT 100
[2024-10-08 04:00] VITALS: BP 161/90; PULSE 92; RESP 20; TEMP 97.5; O2SAT 100
[2024-10-08 06:26] VITALS: BP 149/91; PULSE 88; RESP 17; TEMP 97.8; O2SAT 100
[2024-10-08 07:46] VITALS: PULSE 84; RESP 18; O2SAT 97
[2024-10-08 08:00] VITALS: BP 155/92; PULSE 84; RESP 18; TEMP 98.4; O2SAT 98
== END 2024-10-08 13:30 | disposition home or self-care (01) | DRG 872 ==
LOC: FSED 19:17 → MED/SURG3 21:22
PROVIDERS: ADMIT Internal Medicine; ATTEND Internal Medicine
PROC: 3E0333Z Introduction of Anti-inflammatory into Peripheral Vein, Percutaneous Approach (ICD-10-PCS; principal; 2024-10-04)
DX: A41.51 Sepsis due to Escherichia coli [E. coli] (principal); E87.20 Acidosis, unspecified; N10 Acute pyelonephritis; E11.9 Type 2 diabetes mellitus without complications; E86.0 Dehydration; G89.4 Chronic pain syndrome; N20.0 Calculus of kidney; R31.29 Other microscopic hematuria; J45.909 Unspecified asthma, uncomplicated; Z79.51 Long term (current) use of inhaled steroids; Z79.84 Long term (current) use of oral hypoglycemic drugs; Z90.721 Acquired absence of ovaries, unilateral; Z87.440 Personal history of urinary (tract) infections; Z87.442 Personal history of urinary calculi; Z90.49 Acquired absence of other specified parts of digestive tract; Z90.710 Acquired absence of both cervix and uterus; Z88.5 Allergy status to narcotic agent; Z88.7 Allergy status to serum and vaccine; Z88.8 Allergy status to other drugs, medicaments and biological substances
CPT/HCPCS: 36415; 74176; 80048; 80053; 81001; 81003; 82948; 83605; 84132; 85025; 87040; 87086; 87186; 88300; 93005; 94799; 99284; J0696; J1650; J2270; J2405; J2543; J7030; J7050